=== PATIENT | male | born 1955 | race Caucasian/White ===

== ENCOUNTER → 2016-09-11 | Outpatient (CLI) | payer OTHER | LOC: FIMAGING 14:37 | PROVIDERS: ATTEND Physician Assistant Medical | DX: M48.06 Spinal stenosis, lumbar region (principal); M51.36 Other intervertebral disc degeneration, lumbar region; M99.73 Connective tissue and disc stenosis of intervertebral foramina of lumbar region; M51.86 Other intervertebral disc disorders, lumbar region; M12.88 Other specific arthropathies, not elsewhere classified, other specified site ==